=== PATIENT | male | born 2000 | race Caucasian/White ===

== ENCOUNTER 2021-07-17 13:09 | Emergency (ER) | payer BC ==
[~2021-07-17] VITALS: Ht 175.3 cm; Wt 104.3 kg
[2021-07-17 13:13] VITALS: BP 155/56
--- NOTE | 2021-07-17 13:18 | NUR ---
PT AMBULATED TO ER BED 7
--- NOTE | 2021-07-17 13:47 | NUR ---
Zack hines in [facility] - 07/17/21 at [email or web address] BRIONES AT BEDSIDE EVALUATING PT
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
--- NOTE | 2021-07-17 13:50 | NUR ---
RUBIN CANTRELL AT BEDSIDE EVALUATING PT
[2021-07-17] MEDS ORDERED: CYCL-711 PO (13:55)
[2021-07-17] MEDS ORDERED: NAPR-54 PO (13:55)
--- NOTE | 2021-07-17 14:10 | NUR ---
DPatient discharged with v/s stable. Written and verbal after care instructions ABOUT TEMPOROMANDIBULAR JOINT SYNDROME given and explained. Patient alert, oriented and verbalized understanding of instructions. Ambulatory with steady gait. All questions addressed prior to discharge. ID band removed. Patient advised to follow up with PMD. Rx of FLEXERIL AND NAPROXEN given. Patient educated on indication of medication including possible reaction and side effects. Opportunity to ask questions provided and answered.
== END 2021-07-17 14:10 | disposition home or self-care (01) ==
LOC: MED 13:09
DX: M26.601 Right temporomandibular joint disorder, unspecified (principal); Z79.899 Other long term (current) drug therapy
CPT/HCPCS: 99283